=== PATIENT | female | born 1965 | race Caucasian/White ===

== ENCOUNTER 2018-12-17 14:29 | Emergency (ER) | payer OTHER | END 2018-12-17 18:08 | disposition home or self-care (01) | LOC: ED 14:29 ==

== ENCOUNTER 2019-01-01 21:03 | Inpatient (IN) | payer OTHER ==
[~2019-01-01] VITALS: Ht 162.6 cm; Wt 62.6 kg
[~2019-01-01 21:03] MED LIST: ALD50 PO; ATI2I IV; BG MC; CARL PO; DEXPF IV; DOK100 M3 PO; FER300 PO; FOL1 PO; GLU500 PO; HAL5I IM; HEP5I SC; HUMULIN R100 U/1 M1 SC; KCL20L PO; L20I IV; LAC30L PO; LAM100 PO; LAMOTRIGINE200 M1 PO; LASIX40 MG PO; LEVOTHYROXINE0.05 M2 PO; LOTENSIN10 MG PO; NEU100 PO; NEURONTIN600 MG PO; NIT0.4 SL; NOR10T PO; NPHOS PO; OXYBUTYNIN CHLOR5 MG PO; POTASSIUM CHLO10 MEQ PO; PRILOSEC OTC20 M1 PO; PROTONIX40 MG/Pac1 PO; SERO100 PO; SYN5 PO; THERAGRAN-M1 TA4 PO; TYL325 PO; VITC PO; XIFAXAN550 M1 PO; ZOCOR20 MG PO; ZOFI IV
[2019-01-01 21:13] VITALS: Ht 162.6 cm; Wt 62.6 kg
[2019-01-01 21:42] LABS: PLATELET COUNT 439 x10^3mcL (130-400); RED CELL DISTRIBUTION WIDTH 16.3 % (11.5-14.5)
[2019-01-01 21:49] LABS: BILIRUBIN TOTAL 1.4 mg/dL (0.20-1.00); CALCIUM 9.1 mg/dL (8.5-10.1); CARBON DIOXIDE 13.5 mmol/L (21-32); CREATININE SERUM 1.1 mg/dL (0.6-1.0); POTASSIUM SERUM 3.8 mmol/L (3.5-5.1); TOTAL PROTEIN, SERUM 7.2 g/dL (6.4-8.2)
[2019-01-01 21:50] LABS: ALBUMIN 2.5 g/dL (3.4-5.0)
[2019-01-01 22:15] LABS: BAND NEUTROPHIL 8 % (0-10); BASOPHIL 0 % (0-2); METAMYELOCTE 1 % (0-2); MONOCYTE 3 % (0-7); SEGMENTED NEUTROPHILS 82 % (37-75)
[2019-01-01 22:16] LABS: PLATELET MORPHOLOGY PLATELETS NORMAL; rbc morphology (normal/abnorm) NORMAL (NORMAL)
[2019-01-02 00:13] LABS: CALCIUM 7.9 mg/dL (8.5-10.1); CARBON DIOXIDE 17.7 mmol/L (21-32); CHLORIDE SERUM 107 mmol/L (98-107); GFR1 > 60 mL/min; GLUCOSE SERUM 107 mg/dL (74-106); POTASSIUM SERUM 3.6 mmol/L (3.5-5.1); SODIUM SERUM 141 mmol/L (136-145)
[2019-01-02 01:35] LABS: microscopic required? YES; urine erythrocyte 1+ (NEGATIVE)
[2019-01-02 01:40] LABS: CHOLESTEROL/HDL RATIO 1.6
[2019-01-02 01:44] LABS: AMPHETAMINE QUAL UR NONE DETECTED (See below)
[2019-01-02 01:50] LABS: FREE T4 1.05 ng/dL (0.76-1.46); FREE THYROXINE INDEX 2.2 ug/dL (1.4-4.5); T4(THYROXINE) 6.5 ug/dL (4.7-13.3)
[2019-01-02 02:03] LABS: T3 TOTAL 0.86 ng/mL
[2019-01-02] MEDS ORDERED: LEVOTHYROXIN0.025 M2 (02:09)
[2019-01-02 04:04] VITALS: BP 104/61
[2019-01-02 05:41] VITALS: BP 95/56
[2019-01-02 06:37] LABS: PLATELET COUNT 366 x10^3mcL (130-400)
[2019-01-02 06:44] LABS: BASOPHIL % 0 % (0-2); RED CELL DISTRIBUTION WIDTH 16.1 % (11.5-14.5)
[2019-01-02 06:48] LABS: CALCIUM 8.3 mg/dL (8.5-10.1); CARBON DIOXIDE 16.8 mmol/L (21-32); CHLORIDE SERUM 106 mmol/L (98-107); GFR1 > 60 mL/min; MAGNESIUM 2.4 mg/dL (1.8-2.4); PHOSPHOROUS 1.8 mg/dL (2.5-4.9); POTASSIUM SERUM 3.3 mmol/L (3.5-5.1); SODIUM SERUM 141 mmol/L (136-145)
[2019-01-02 07:28] LABS: GLUCOSE SERUM 58 mg/dL (74-106)
[2019-01-02 09:29] LABS: BILIRUBIN DIRECT 0.74 mg/dL (0.0-0.2); BILIRUBIN TOTAL 1.14 mg/dL (0.20-1.00); TOTAL PROTEIN, SERUM 6.6 g/dL (6.4-8.2)
[2019-01-02 09:30] LABS: ALBUMIN 2.3 g/dL (3.4-5.0)
[2019-01-02 10:19] VITALS: BP 107/70
[2019-01-02 17:12] VITALS: BP 93/56
[2019-01-02 20:57] VITALS: BP 102/61
[2019-01-03 05:30] VITALS: BP 109/73
[2019-01-03 06:33] LABS: BASOPHIL % 0.1 % (0-2); PLATELET COUNT 307 x10^3mcL (130-400)
[2019-01-03 06:39] LABS: RED CELL DISTRIBUTION WIDTH 16.4 % (11.5-14.5)
[2019-01-03 06:43] LABS: CALCIUM 8.3 mg/dL (8.5-10.1); CARBON DIOXIDE 21.3 mmol/L (21-32); CHLORIDE SERUM 111 mmol/L (98-107); GFR1 > 60 mL/min; GLUCOSE SERUM 135 mg/dL (74-106); MAGNESIUM 1.7 mg/dL (1.8-2.4); PHOSPHOROUS 2.2 mg/dL (2.5-4.9); SODIUM SERUM 144 mmol/L (136-145)
[2019-01-03 07:01] LABS: POTASSIUM SERUM 2.8 mmol/L (3.5-5.1)
[2019-01-03 07:25] VITALS: BP 106/62
[2019-01-03 16:40] VITALS: BP 99/64
[2019-01-03 20:52] VITALS: BP 100/63
[2019-01-04 05:43] VITALS: BP 103/65
[2019-01-04 06:12] LABS: CALCIUM 8.1 mg/dL (8.5-10.1); CARBON DIOXIDE 20.3 mmol/L (21-32); CHLORIDE SERUM 114 mmol/L (98-107); CREATININE SERUM 0.6 mg/dL (0.6-1.0); GFR1 > 60 mL/min; GLUCOSE SERUM 97 mg/dL (74-106); POTASSIUM SERUM 3.3 mmol/L (3.5-5.1); SODIUM SERUM 146 mmol/L (136-145)
[2019-01-04 06:26] LABS: BASOPHIL % 0.3 % (0-2); PLATELET COUNT 304 x10^3mcL (130-400)
[2019-01-04 07:54] VITALS: BP 106/67
[2019-01-04 10:00] VITALS: BP 99/66
[2019-01-04 16:01] VITALS: BP 105/68
[2019-01-04 21:17] VITALS: BP 104/65
[2019-01-05 05:20] VITALS: BP 103/62
[2019-01-05 06:22] LABS: CALCIUM 9.1 mg/dL (8.5-10.1); CARBON DIOXIDE 20.2 mmol/L (21-32); CHLORIDE SERUM 112 mmol/L (98-107); CREATININE SERUM 0.5 mg/dL (0.6-1.0); GFR1 > 60 mL/min; GLUCOSE SERUM 129 mg/dL (74-106); SODIUM SERUM 142 mmol/L (136-145)
[2019-01-05 07:58] LABS: BASOPHIL % 0.2 % (0-2); PLATELET COUNT 321 x10^3mcL (130-400)
[2019-01-05 08:00] LABS: RED CELL DISTRIBUTION WIDTH 16.9 % (11.5-14.5)
[2019-01-05 09:42] VITALS: BP 108/68
[2019-01-05 14:05] VITALS: BP 108/68
[2019-01-05 17:00] VITALS: BP 97/53
[2019-01-05 20:59] VITALS: BP 97/56
[2019-01-06 05:08] VITALS: BP 105/73
[2019-01-06] MEDS ORDERED: PROTONIX20 MG PO (08:26)
[2019-01-06] MEDS ORDERED: ZOF4 PO (08:26)
[2019-01-06 09:25] VITALS: BP 121/77
== END 2019-01-06 11:39 | disposition home or self-care (01) | DRG 380 ==
LOC: ED 21:03 → MU 01-02 00:47 → DU 01-02 00:47 → MU 01-02 02:50
PROVIDERS: Emergency Medicine; Internal Medicine; Internal Medicine Gastroenterology; ADMIT General Practice
PROC: 0DB78ZX Excision of Stomach, Pylorus, Via Natural or Artificial Opening Endoscopic, Diagnostic (ICD-10-PCS; principal; 2019-01-04 08:00)
PROC: 0D778ZZ Dilation of Stomach, Pylorus, Via Natural or Artificial Opening Endoscopic (ICD-10-PCS; 2019-01-04 08:00)
DX: K28.9 Gastrojejunal ulcer, unspecified as acute or chronic, without hemorrhage or perforation (principal); N17.0 Acute kidney failure with tubular necrosis; E43 Unspecified severe protein-calorie malnutrition; K85.10 Biliary acute pancreatitis without necrosis or infection; N39.0 Urinary tract infection, site not specified; F33.9 Major depressive disorder, recurrent, unspecified; K72.90 Hepatic failure, unspecified without coma; S70.02XA Contusion of left hip, initial encounter; E11.9 Type 2 diabetes mellitus without complications; E83.42 Hypomagnesemia; E03.9 Hypothyroidism, unspecified; R80.9 Proteinuria, unspecified; N32.81 Overactive bladder; I10 Essential (primary) hypertension; F41.8 Other specified anxiety disorders; W18.39XA Other fall on same level, initial encounter; Y93.89 Activity, other specified; Y92.018 Other place in single-family (private) house as the place of occurrence of the external cause; Z98.84 Bariatric surgery status; Z68.22 Body mass index [BMI] 22.0-22.9, adult; Z79.84 Long term (current) use of oral hypoglycemic drugs
CPT/HCPCS: 43235; 82962; 84439; 97116-GP; 97530-GP; C1769; C9113; G0378; G0480; J1200; J1610; J1885; J2250; J2310; J2405; J2765; J3010; J3475; J3480; J3490; J7030; J7042; J7131; J8597; Q0092

== ENCOUNTER 2019-01-30 15:45 | Emergency (ER) | payer OTHER, MEDICAID ==
[~2019-01-30] VITALS: Ht 162.6 cm; Wt 61.7 kg
[~2019-01-30 15:45] MED LIST changes: +LEVOTHYROXIN0.025 M2; +PROTONIX20 MG PO; +ZOF4 PO
[2019-01-30 17:40] VITALS: Ht 162.6 cm; Wt 61.7 kg
[2019-01-30 21:57] VITALS: BP 110/73
== END 2019-01-30 21:57 | disposition home or self-care (01) ==
LOC: ED 15:45
DX: S72.111A Displaced fracture of greater trochanter of right femur, initial encounter for closed fracture (principal); W19.XXXA Unspecified fall, initial encounter; Y93.89 Activity, other specified; Y92.89 Other specified places as the place of occurrence of the external cause; Y99.8 Other external cause status

== ENCOUNTER 2019-02-03 04:05 | Emergency (ER) | payer OTHER, MEDICAID ==
[~2019-02-03] VITALS: Ht 162.6 cm; Wt 61.7 kg
[2019-02-03 04:08] VITALS: Ht 162.6 cm; Wt 61.7 kg
[2019-02-03 12:45] VITALS: BP 101/68
== END 2019-02-03 12:52 ==
LOC: ED 04:05
DX: S72.001A Fracture of unspecified part of neck of right femur, initial encounter for closed fracture (principal); F79 Unspecified intellectual disabilities; I10 Essential (primary) hypertension; E11.9 Type 2 diabetes mellitus without complications; E78.00 Pure hypercholesterolemia, unspecified; E05.90 Thyrotoxicosis, unspecified without thyrotoxic crisis or storm; G89.29 Other chronic pain; Z98.890 Other specified postprocedural states; Z90.710 Acquired absence of both cervix and uterus; W18.39XA Other fall on same level, initial encounter; Y93.89 Activity, other specified; Y92.89 Other specified places as the place of occurrence of the external cause; Y99.8 Other external cause status

== ENCOUNTER 2019-04-01 16:02 | Inpatient (IN) | payer OTHER ==
[~2019-04-01] VITALS: Ht 162.6 cm; Wt 54.6 kg
--- NOTE | 2019-04-01 16:10 | NUR ---
ARRIVED WITH [facility] STATED DAUGHTER MADE CALL THAT MOM WAS S/P FALL YESTERDAY AND POST FALL BEEN WEAK AND FLAT AFFECT.PT ALERT TO SELF ABLE TO ANSWER SOME QUESTIONS BUT THEN BECOMES NON VERBAL VITALS STABLE IV STARTED TO LEFT A/C AND BOLUS GIVEN 1000CC X1 URINE COLLECTED DIPPED AND SENT.ALL LABS COOLECTED AT THIS POINT AWAITING MD RODRIGUEZ FAMILY AT BEDSIDE PT POOR HISTORIAN.HOB ELVATED HEART RATE WDL.NURSE CONTINUES TO MONITOR
[2019-04-01 16:57] LABS: BASOPHIL % 0.2 % (0-2); PLATELET COUNT 303 x10^3mcL (130-400)
[2019-04-01 16:57] LABS: microscopic required? YES; urine erythrocyte NEGATIVE (NEGATIVE)
[2019-04-01 17:00] LABS: RED CELL DISTRIBUTION WIDTH 19.3 % (11.5-14.5)
[2019-04-01 17:09] LABS: ALKALINE PHOSPHATASE 155 U/L (46-116); ALT/SGPT 56 U/L (14-59); AMPHETAMINE QUAL UR NONE DETECTED (See below); AST/SGOT 66 U/L (15-37); BILIRUBIN TOTAL 1.7 mg/dL (0.20-1.00); CALCIUM 6.9 mg/dL (8.5-10.1); CARBON DIOXIDE 21.7 mmol/L (21-32); CHLORIDE SERUM 110 mmol/L (98-107); CREATININE SERUM 0.7 mg/dL (0.6-1.0); GFR1 > 60 mL/min; GLUCOSE SERUM 153 mg/dL (74-106); SODIUM SERUM 146 mmol/L (136-145)
[2019-04-01 17:14] LABS: ALBUMIN 1.6 g/dL (3.4-5.0); POTASSIUM SERUM 2.9 mmol/L (3.5-5.1); TOTAL PROTEIN, SERUM 5.1 g/dL (6.4-8.2)
--- NOTE | 2019-04-01 17:38 | NUR ---
URINE BACK NEG FOR UDS PT DOWN FOR XRAY FATHER ARRIVED AT BEDSIDE PT REMAINS SAME AFTER IVF COMPLETED FC TO GRAVITY TOLERTED WELL WITH DARK KIRAN URINE.
--- NOTE | 2019-04-01 18:00 | NUR ---
PT STILL REMAINS IN XRAY TO BE ADMITTED
--- NOTE | 2019-04-01 18:52 | NUR ---
IVP K RIDER STARTED X1 SECOND ONE STILL NEEDED TOTAL 40MEG
--- NOTE | 2019-04-01 18:57 | NUR ---
XRAY AT THIS TIME OF STOMACH AND PELVIC PT A/O/4 FATHER AT BEDSIDE NO S/S OF DISTRESS C/O N/V AT THIS TIMR REFUSING PO DIOGO PEREIRA MADE AWARE TO GIVEN ZOFRAN.
--- NOTE | 2019-04-01 19:10 | NUR ---
ADMITTING DR SHAFER IN TO SEE PT STATED WILL PLACE ORDERS FOR ADMIT NO ROOM AT THIS TIME PT REMAINS STABLE WITH SOME [place] ZOFRAN TO BE GIVEN.
--- NOTE | 2019-04-01 19:17 | NUR ---
REPORT OFF TO KRISTIN PT STABLE UPON REPORT RECIEVED
--- NOTE | 2019-04-01 19:24 | NUR ---
REPORT RECEIVED FROM CHARLINE DANG
--- NOTE | 2019-04-01 19:31 | NUR ---
SECOND IV STARTED TO RIGHT HAND 20G MAG RIDER STARTED AT THIS TIME.
--- NOTE | 2019-04-01 19:47 | NUR ---
REPORT GIVEN TO MORRIS PT GOING TO ROOM [address] LAND INFORMED OF SECONDARY KRIDER TO BE HUNG WILL GO UP STAIRS WITH PT PLAN WAS OKAYED BY DR ANGÉLICA CACERES INFORMED TO HANG SECOND K RIDER PT STABLE UPON REPORT GIVEN ALL BELONGINGS SENT WITH PT.
--- NOTE | 2019-04-01 20:00 | NUR ---
RECEIVED PT FROM ED VIA KENYA, PT IS LETHARGIC, ABLE TO FOLLOW SIMPLE COMMANDS, SPEECH IS SLOW BUT CLEAR, HAND DOUBLE ENDING MACHINE OPERATOR ARE WEAK AND EQUAL, NO FACIAL DROOP NOTED. PUPILS ARE SLUGGISH AND DILATED. NO SOB NOTED, LUNG SOUNDS CTA, O2 AT=98%, RA. DENIES CHEST PAIN/PRESSURE, SINUS TACHYCARDIA ON THE MONITOR. C/O 7/10 ABDOMINAL PAIN, DENIES NAUSEA, VOMITED X4 CAFE LEAD. LAST BM TODAY. BOWEL SOUNDS ACTIVE. ABDOMEN IS SOFT. BOWEL SOUNDS ACTIVE. W/ BOATENG CATHETER DRAINING W/ YELLOW COLORED URINE. IV SITES ON THE RIGHT HAND AND LEFT HAND ARE PATENT AND INTACT. RECEIVED PT FROM ED W/ NS, POTASSIUM CHLORIDE AND MAGNESIUM SULFATE ONGOING. W/ DRY SCABS ON BLE. HOB ELEVATED AT 30 DEG. SIDE RAILS UPX2. CALL LIGHT ON REACH. ENDORSED TO PRIMARY NURSE MORRIS FOR CONTINUITY OF CARE
[2019-04-01 20:15] VITALS: BP 115/76
[2019-04-01 20:27] VITALS: Ht 162.6 cm; Wt 54.6 kg
--- NOTE | 2019-04-02 01:08 | NUR ---
PT AWAKE AND C/O OF BLE AND BACK PAIN, PT STATED THAT SHE TAKES NEURONTIN AND PERCOCET 10/325 PO Q6HRS NEEDED, DR Momin MADE AWARE, PER DR FITZGERALD THAT SHE WILL NOT RESUME THE MEDS AT THIS TIME. TORADOL 15MG VIA IVP ADMINISTERED.
--- NOTE | 2019-04-02 04:45 | NUR ---
PT CALLED AND C/O OF BLE PAIN, MADE DR SHAFER AWARE THAT TORADOL WAS GIVEN @ 0049, PER DR SHAFER HE WILL COME TO ASSESS PT IN 10-15 MINS.
--- NOTE | 2019-04-02 04:55 | NUR ---
DR SHAFER AT BEDSIDE AND EVAL PT, NORCO 5/325 PO GIVEN ORDERED.
--- NOTE | 2019-04-02 05:38 | NUR ---
DR SHAFER MADE AWARE OF PT THIS MORNING BLOOD SUGAR- 83 MG/DL AND PT STILL NPO AT THIS TIME, NO NEW ORDER RECEIVE.
--- NOTE | 2019-04-02 05:45 | NUR ---
PT ASLEEP BUT EASILY AROUSABLE AFTER MEDICATED WITH NORCO PO, SLEPT ON AND OFF WHOLE NIGHT, STILL NPO AT THIS TIME, PT NOT COOPERATIVE WITH NURSING CARE AT TIMES, IVF INFUSING WELL, SIDE RAILS UP, BED ALARM ON, NO DISTRESS NOTED, WILL KEEP TO MONITOR.
[2019-04-02 05:58] VITALS: BP 100/58
[2019-04-02 06:35] LABS: BASOPHIL % 0.4 % (0-2); PLATELET COUNT 290 x10^3mcL (130-400)
[2019-04-02 07:12] LABS: CALCIUM 6.6 mg/dL (8.5-10.1); CARBON DIOXIDE 19.9 mmol/L (21-32); CHLORIDE SERUM 113 mmol/L (98-107); CREATININE SERUM 0.7 mg/dL (0.6-1.0); GFR1 > 60 mL/min; GLUCOSE SERUM 86 mg/dL (74-106); MAGNESIUM 1.7 mg/dL (1.8-2.4); POTASSIUM SERUM 3.9 mmol/L (3.5-5.1); SODIUM SERUM 146 mmol/L (136-145)
--- NOTE | 2019-04-02 07:30 | NUR ---
RECEIVED HAND OFF REPORT FROM NURSE. PATIENT ADMITTED FROM ED BROUGHT IN BY AMBULANCE AFTER SUFFERING A GROUND LEVEL FALL, PATIENT STATES SHE TRIPPED AFTER TRYING TO MOVE TOO QUICKLY. XRAY HIP SHOWS FRACTURE TO RIGHT HIP. UNABLE TO DETERMIN AGE. PATIENT RESTING A TTHIS TIME. CALL LIGHT WITHIN REACH, BOATENG DRAINING CLEAR YELLOW URINE, IV X2 TO RIGHT AND LEFT WRIST SITES WNL. HEART MONITOR INPLACE SHOWING NSR.
[2019-04-02 08:01] LABS: RED CELL DISTRIBUTION WIDTH 19.5 % (11.5-14.5)
[2019-04-02 08:22] VITALS: BP 111/69
--- NOTE | 2019-04-02 08:27 | NUR ---
PATIENT COMPLAINING OF 8/10 PAIN TO RIGHT HIP, STATING SHE HAD A FRACTURE TO THAT HIP 2-3 WEEKS AGO. PATIENT VITAL SIGNS STABLE ADMINISTERED TORODOL PER SEP. ASSISTED PATIENT TO REPOSITION WITH PILLOW UNDER LEFT HIP PER APTIENT REQUEST. CALL ILGHT WITHIN REACH, WILL CONTINUE TO MONITOR
--- NOTE | 2019-04-02 10:37 | NUR ---
[facility] CALLED TO SEND OVER RECORDS, STATED THAT RECORDS DEPARTMENT IS CLOSED ON THE WEEKEND, WILL ENDORSE TO FOLLOW UP ON WEDNESDAY MORNING
--- NOTE | 2019-04-02 11:37 | NUR ---
PATIETN COMPLAINING OF PAIN, ADMINSTERED NORCO PER MAR. PATIENT REQUESTING STONGER MEDICATIONS. BEDSIDE GLUCOSE RESULT WAS 66, DR BRYANT AWARE, IS GOING TO CHANGE DIET ORDER.
--- NOTE | 2019-04-02 12:06 | NUR ---
PATIENT CLEARED TO EAT BY DR BRYANT, OFFERED PATIENT A SANWHICH AND JUICES TO INCREASE BLOOD SUGAR. PATIENT REFUSING SANDWHICH. LUNCH COMING AT 1230. REPOSITIONED PATIENT FOR COMFORT. REQUESTING HOME PAIN MEDICATIONS. DR BRYANT AWARE AND DOES NOT WANT TO CHANGE DOSE AT THIS TIME.
--- NOTE | 2019-04-02 12:59 | NUR ---
PATIENT FATHER AT BEDSIDE. PATIENT STATES THAT SHE WAS AT [facility] BEFORE [facility] AFTER SUSTAINING HER HIP FRACTURE. DR BRYANT WANTS TO BE SURE THAT FRACTURE IS NOT NEW OR WILL NEED HIGHER LEVEL OF CARE. PATIENT SEEMS TO BE UNRELIABLE HISTORIAN.
[2019-04-02 13:03] VITALS: BP 103/60
--- NOTE | 2019-04-02 13:41 | NUR ---
PATIENT COMPLAING OF KEREN ANGCTED PER SEP. DISCOVERED THAT PATIENT WAS ADMITTED PREVIOUSLY UNDER THE NAME ANTHONY BROOKSELLE AND RECORDS WILL NEED TO BE MERGED TOMORRW. PATIENT WAS SEEN IN ER IN JANUARY FOR HIP PAIN AND XRAY SHOWED FRATURE THAT CURRENT XRAYS SHOW. NACHO DANG INFORMED DR JIM.
--- NOTE | 2019-04-02 16:59 | NUR ---
PATIENT RESTING IN BED, BREATHING REGULAR AND UNLABORED. EASILY ROUSABLE TO VOICE. BLOOD SUGAR CHECK IS 88. NO COVERAGE NEEDED. ENCOURAGED PATIENT TO EAT WHEN DINNER TRAY COMES. PATIENT REQUESTED TO SLEEP AT THIS TIME AND NOT BE DISTURBED, NO PAIN REPORTED. CALL LIGHT WITHIN REACH, WILL CONTINUE TO MONITOR
[2019-04-02 17:40] VITALS: BP 111/72
--- NOTE | 2019-04-02 17:58 | NUR ---
PATIENT COMPLAINING OF 8/10 PAIN TOP RIGHT LEG WELL NAUSEA. MEDICATED PER [facility]. SAT PATIENT UP TO EAT DINNER TRAY. CALL LIGHT WITHIN REACH
--- NOTE | 2019-04-02 19:25 | NUR ---
ENDORSED CARE TO NIGHT NURSE. ALL QUESTIONS ADDRESSED
--- NOTE | 2019-04-02 19:40 | NUR ---
RECEIVED PT IN BED. PT IS LETHARGIC, BUT EASILY AROUSABLE. DENIES ANY HEADACHE OR DIZZINESS AT THIS TIME. BREATHING EVEN AND UNLABORED ON ROOM AIR. LUNG SOUNDS CLEAR. NO RESPIRATORY DISTRESS OR SOB NOTED. ON TELE #22, NSR. DENIES CHEST PAIN. NO TRACE EDEMA NOTED TO BLE. GENERALIZED WEAKNESS. ON THE AIR MATTRESS. PT ABLE TO REPOSITION SELF IN BED. ABDOMINAL SOFT AND FLAT WITH ACTIVE BOWEL SOUNDS. C/O NAUSEA AND VOMITING AT TIMES. BOATENG CATHETER GRAVITY DRAINING YELLOW URINE. SCATTERED ECCHYMOSES TO BLE AND BUE. SIDE RAILS UP. CALL LIGHT WITHIN REACH. BED ALARM ON.
[2019-04-02 21:07] VITALS: BP 118/79
--- NOTE | 2019-04-03 01:08 | NUR ---
PT AWAKE AND COMPLAINING OF PAIN TO BILATERAL LOWER EXTREMITIES. NORCO GIVEN. PT VOMITED 2X. PARTIAL BED BATH GIVEN AND CHANGE OF GOWN. PHENERGEN GIVEN.
--- NOTE | 2019-04-03 06:03 | NUR ---
PT ASLEEP BUT EASILY AROUSABLE. SLEPT ON AND OFF ALL NIGHT. VOMITED 2X 100ML EACH TIME. ADMINISTERED NORCO 1X FOR PAIN. IVF INFUSING WELL. NO S/S OF RESPIRATORY DISTRESS OR SOB AT THIS TIME. CALL LIGHT WITHIN REACH. BED RAILS UP. WILL CONTINUE TO MONITOR.
[2019-04-03 06:12] VITALS: BP 117/83
[2019-04-03 06:26] LABS: BASOPHIL % 0.4 % (0-2); PLATELET COUNT 250 x10^3mcL (130-400)
[2019-04-03 06:45] LABS: CALCIUM 6.7 mg/dL (8.5-10.1); CARBON DIOXIDE 23.1 mmol/L (21-32); CHLORIDE SERUM 115 mmol/L (98-107); CREATININE SERUM 0.6 mg/dL (0.6-1.0); GFR1 > 60 mL/min; GLUCOSE SERUM 73 mg/dL (74-106); MAGNESIUM 1.7 mg/dL (1.8-2.4); PHOSPHOROUS 2.7 mg/dL (2.5-4.9); POTASSIUM SERUM 3.7 mmol/L (3.5-5.1); SODIUM SERUM 145 mmol/L (136-145)
--- NOTE | 2019-04-03 07:00 | NUR ---
RECEIVED BEDSIDE REPORT FROM COPIER REPAIR TECHNICIAN NURSE. PATIENT RESTING COMFORTABLY IN BED. NO APPARENT DISTRESS OR DISCOMFORT NOTED. BREATHING EVEN AND UNLABORED. NO RESPIRATORY DISTRESS OR DISCOMFORT NOTED. PATIENT DENIES SHORTNESS OF BREATH. PATIENT DENIES CHEST PAIN/PRESSURE AT THIS TIME. BOATENG CATHETER DRAINING TO GRAVITY YELLOW URINE. IV PATENT AND INTACT. ALL QUESTIONS AND CONCERNS ADDRESSED. ALL NEEDS ATTENDED TO. WILL CONTINUE TO MONITOR
[2019-04-03 09:03] VITALS: BP 123/83
--- NOTE | 2019-04-03 10:06 | NUR ---
ADMINISTERED ROUTINE MEDICATIONS PRESCRIBED. PT TOLERATED WELL . NO ADVERSE SIDE AFFECTS NOTED. INSTRUCTED TO USE CALL LIGHT . BED IN LOW POSITION. WILL CONTINUE TO MONITOR.
[2019-04-03 10:58] LABS: rbc morphology (normal/abnorm) ABNORMAL (NORMAL)
[2019-04-03 11:46] VITALS: BP 113/78
--- NOTE | 2019-04-03 12:01 | NUR ---
1. Recommend continuing [facility] diet. 2. Recommend Ensure High protein BID and vitamin D3 supplement. Discussed recommendation with Dr. Be.
--- NOTE | 2019-04-03 12:01 | NUR ---
Initial Nutrition Assessment: 212T/B BILL FINE IA HR Dx: Dehydration, hypokalemia, ALOC PMHx: DM, HTN PSHx: None Labs: BG 73L, MG 1.7L, ALB 1.6L, AST 66H, HGB 10.7L Meds: Colace, D 50%, humulin, norco Diet: CCHO PO Intake: (04/03) Breakfast 50% Ht: 162.56 cm (64") Wt: 54.6 kg (120#) BMI: 20.7 kg/m2 Bed scale: 118.9# IBW: 120# (55 kg) %IBW: 100 UBW: 130# Age: 54/F Food Allergies: NKFA Skin: ecchymosis, scattered scabs to BLE Guillermo: 15 Edema: none GI: Last BM: 04/01 Per H&P, Pt is a 54 year old female with a PMH of diabetes, hypertension, L hip fracture came in with complaints of nausea and vomiting since 1 week. Patient had multiple episodes of non-bloody vomiting in the last week and has a significant decrease in her appetite due to feeling nauseous. RDN Visit (04/03): Patient was alert and oriented and said that her appetite is good overall but she keep feeling nauseous. She did not eat anything for breakfast this morning. Patient wants to consume ONS Ensure. FNS received consult for "decreased appetite, appears malnourished" on 04/02. Problem with: N/V/D/C: nausea Problems with: Chewing/Swallowing: none Current appetite: fair Recent wt change: lost 10 # x 1 month %wt change: 8.5 Vitamin/Supplement use: MVI, D3 Special diet at home: Diabetic Physical activity: wheelchair bound Nutrition education given: Patient said that she has her DM under control and did not want any further information/handouts. Food-drug interactions: none Education given: n/a Estimated Nutritional Needs Based on current body weight 54 kg Energy: 2020-9638 kcal/d (25-30 kcal/kg) Protein: 54-65 g/d (1.0-1.2 g/kg) - preserve LBM Fluid: 9821-2979 ml/d (1 ml/kcal) or per doctor Nutrition Diagnosis 1. Inadequate oral intake related to nausea as evidenced by documented PO <75%. Intervention 1. Recommend continuing [facility] diet. 2. Recommend Ensure High protein BID and vitamin D3 supplement. Discussed recommendation with Dr. Be. Monitor/Evaluate Goal: PO intake at least 75% of estimated needs Monitor: PO intake, Labs, GI function F/U in 3-5 days as moderate risk
--- NOTE | 2019-04-03 12:23 | NUR ---
PT LYING IN BED IN NO APARENT PAIN. BLOOD GLUCOSE 80. NO ISULIN COVERAGE NEEDED WILL CONTINUE TO MIONITOR. CALL LIGHT WITH IN REACH.
--- NOTE | 2019-04-03 16:45 | NUR ---
REPORTED TO DR SEO AT THIS TIME PATIENT MAGNESIUM 1.7. PER DR SEO OK TO INPUT TELEPHONE ORDER FOR 1GM MAGNESIUM IV ONE TIME DOSE AND A REPEAT MAGNESIUM LAB FOR TOMORROW IN AM. TELEPHONE ORDER READ BACK, CONFIRMED AND THROUGH. ALL NEEDS ATTENDED TO. WILL CONTINUE TO MONITOR
[2019-04-03 17:43] VITALS: BP 109/73
--- NOTE | 2019-04-03 19:08 | NUR ---
PATIENT RESTING COMFORTABLY IN BED AT THIS TIME. NO APPARENT DISTRESS OR DISCOMFORT NOTED. IV PATENT AND ITNACT TO BOTH RIGHT HAND AND LEFT WRIST. BOATENG CATHETER DRAINING TO GRAVITY YELLOW URINE. ALL QUESTIONS AND CONCERNS ADDRESSED. ALL NEEDS ATTENDED TO. SAFETY PRECAUTIONS MAINTAINED. WILL ENDORSE ALL CARE TO CULTURAL ANTHROPOLOGY PROFESSOR NURSE
--- NOTE | 2019-04-03 19:20 | NUR ---
RECEIVED PT IN BED HAVIN DINNER. SHE IS ALERT,ORIENTED TO PERSON, PLACE AND TIME . NO SOB ON ROOM AIR. SHE HAS NO C/O PAIN AT THIS TIME. NO C/O ABDL DISCOMFORT. W/ HL TO RT HAND AND LT WRIST INTACT. CALL LIGHT W/IN REACH.
[2019-04-03 20:31] VITALS: BP 107/71
--- NOTE | 2019-04-03 22:24 | NUR ---
PT C/O BILAT LEG PAIN 10/10. PERCOCET 5 MG PO GIVEN.
--- NOTE | 2019-04-04 02:30 | NUR ---
PT APPEARS TO BE SLEEPING COMFORTABLY. RESP. EVEN AND UNLABORED.
--- NOTE | 2019-04-04 05:24 | NUR ---
PT SLEPT THROUGH THE NIGHT. SHE HAD NO EPISODE OF RESP. DISTRESS. SHE WAS MEDICATED FOR BILAT LEG PAIN X1. SHE HAD LOOSE BM X4. BOATENG CATH INTACT W/ 300 CC OUTPUT . ALL NEEDS ATTENDED TO.
[2019-04-04 05:40] VITALS: BP 122/71
--- NOTE | 2019-04-04 05:55 | NUR ---
BS=62/66 (REPEATED). PT AWAKE BUT DROWSY. SHE IS ORIENTED AND ABLE TO COMMUNICATE. PT GIVEN ORANGE JUICE. WILL RECHECK BLOOD SUGAR.
--- NOTE | 2019-04-04 06:28 | NUR ---
INFORMED DR. ROMO ([place]) THAT BS WAS RECHECKED AFTER ORANGE JUICE WAS GIVEN. BS=87.
--- NOTE | 2019-04-04 06:36 | NUR ---
PT C/O BILAT LEG PAIN 10/10. PERCOCET 5 MG PO GIVEN.
[2019-04-04 06:51] LABS: CARBON DIOXIDE 20.7 mmol/L (21-32); CHLORIDE SERUM 112 mmol/L (98-107); CREATININE SERUM 0.6 mg/dL (0.6-1.0); GFR1 > 60 mL/min; GLUCOSE SERUM 99 mg/dL (74-106); MAGNESIUM 1.7 mg/dL (1.8-2.4); POTASSIUM SERUM 3.8 mmol/L (3.5-5.1); SODIUM SERUM 142 mmol/L (136-145)
--- NOTE | 2019-04-04 07:15 | NUR ---
RECEIVED BEDSIDE REPORT FROM CHAPLAIN RESIDENT NURSE. PATIENT RESTING COMFORTABLY IN BED. NO APPARENT DISTRESS OR DISCOMFORT. BREATHING EVEN AND UNLABORED. NO RESPIRATORY DISTRESS OR DISCOMFORT NOTED. PATIENT DENIES CHEST PAIN/PRESSURE AT THIS TIME. IV TO RIGHT HAND AND LEFT WRIST PATENT AND INTACT. ALL QUESTIONS AND CONCERNS ADDRESSED. ALL NEEDS ATTENDED TO. WILL CONTINUE TO MONITOR
[2019-04-04 09:48] VITALS: BP 141/84
--- NOTE | 2019-04-04 10:01 | NUR ---
MORNING MEDICATIONS ADMINISTERED. COLACE HELD DUE TO PATIENT HAVING SOFT STOOL AND NO NEED FOR STOOL SOFTNER. ALL NEEDS ATTENDED TO. WILL CONTINUE TO MONITOR
--- NOTE | 2019-04-04 10:23 | NUR ---
SPOKE TO DR MACIAS REGARDING PATIENT MAGNESIUM OF 1.7. INFORMED DR MACIAS YESTERDAY 04/03 MAGNESIUM WAS 1.7 AND PATIENT RECEIVED MAGNESIUM 1G IV X1. PER DR MACIAS, OK TO ORDER 800MG MAGNESIUM OXIDE PO ONE TIME. ORDER READ BACK, CONFIRMED, AND FOLLOWED THROUGH. ALL NEEDS ATTENDED TO. WILL CONTINUE TO MONITOR
--- NOTE | 2019-04-04 11:57 | NUR ---
PATIENT BLOOD SUGAR 85. NO INSULIN COVERAGE REQUIRED AT THIS TIME. ALL NEEDS ATTENDED TO. WILL CONTINUE TO MONITOR
[2019-04-04 12:18] VITALS: BP 109/72
--- NOTE | 2019-04-04 15:05 | NUR ---
SPOKE TO DR MACIAS REGARDING PATIENT C/O HAVING MULTIPLE BOWEL MOVEMENTS. PATIENT STATES STOOL IS SOFT. PER DR MACIAS OK TO INPUT TELEPHONE ORDER FOR 2GM IMODIUM PO ONE TIME. TELEPHONE ORDER READ BACK, CONFIRMED, AND FOLLOWED THROUGH. ALL NEEDS ATTENDED TO. WILL CONTINUE TO MONITOR
[2019-04-04] MEDS ORDERED: TYL325 PO (16:13)
[2019-04-04] MEDS ORDERED: NEU100 PO (16:13)
[2019-04-04] MEDS ORDERED: PRI20 PO (16:14)
[2019-04-04] MEDS ORDERED: D-10001 TAB PO (16:15)
[2019-04-04] MEDS ORDERED: ULT50 PO (16:18)
--- NOTE | 2019-04-04 17:24 | NUR ---
GAVE REPORT TO BILL MARTINES AT [facility] AT THIS TIME. ALL QUESTIONS AND CONCERNS ADDRESSED. ALL NEEDS ATTENDED TO. REPORTED TO BILL PATIENT JOGGLE PRESS OPERATOR TIME BETWEEN [id number]. WILL CONTINUE TO MONITOR
--- NOTE | 2019-04-04 17:30 | NUR ---
PER DR MACIAS DO NOT DC BOATENG CATHETER. ATTENDING NURSE RACH AWARE.
[2019-04-04 17:58] VITALS: BP 112/76
--- NOTE | 2019-04-04 18:24 | NUR ---
PATIENT RESTING COMFORTABLY IN BED AT THIS TIME. NO APPARENT DISTRESS OR DISCOMFORT NOTED. BOATENG CATHETER DRAINING TO GRAVITY YELLOW URINE. IV PATENT AND INTACT. ALL QUESTIONS AND CONCERNS ADDRESSED. ALL NEEDS ATTENDED TO. SAFETY PRECAUTIONS MAINTAINED. WILL ENDORSE ALL CARE TO BOOKSTORE CLERK NURSE
--- NOTE | 2019-04-04 19:30 | NUR ---
RECEIVED PT IN BED AWAKE, ALERT, ORIENTED X4. NO SOB ON ROOM AIR. PT FOR D/C TO [facility] AND JUST WAITING FOR TRANSPORTATION. W/ BOATENG CATH INTACT AND PATENT. PT HAS NO C/O PAIN OR DISCOMFORT AT THIS TIME. CALL LIGHT W/IN REACH.
--- NOTE | 2019-04-04 20:30 | NUR ---
IV TO LT WRIST REMOVED. CATHETER INTACT AND NO ACTIVE BLEEDING NOTED.
--- NOTE | 2019-04-04 20:35 | NUR ---
PT TAKEN TO [facility] VIA MEDICAL TRANSPORT. PT IN STABLE CONDITION UPON DISCHARGE.
== END 2019-04-04 20:40 | DRG 391 ==
LOC: ED 16:02 → DU 18:48
PROVIDERS: Specialist; ADMIT Internal Medicine
DX: K52.9 Noninfective gastroenteritis and colitis, unspecified (principal); N17.0 Acute kidney failure with tubular necrosis; E43 Unspecified severe protein-calorie malnutrition; E87.0 Hyperosmolality and hypernatremia; E86.0 Dehydration; G90.8 Other disorders of autonomic nervous system; E87.6 Hypokalemia; E83.42 Hypomagnesemia; E83.51 Hypocalcemia; S72.002D Fracture of unspecified part of neck of left femur, subsequent encounter for closed fracture with routine healing; E11.9 Type 2 diabetes mellitus without complications; I10 Essential (primary) hypertension; W19.XXXD Unspecified fall, subsequent encounter
CPT/HCPCS: 82962; 97116-GP; 97530-GP; G0378; J1885; J2405; J2550; J3475; J3480; J7030; J7040; Q0092

== ENCOUNTER 2020-02-28 20:32 | Inpatient (IN) | payer OTHER ==
[~2020-02-28] VITALS: Ht 162.6 cm; Wt 69.0 kg
[~2020-02-28 20:32] MED LIST changes: +D-10001 TAB PO; +PRI20 PO; +ULT50 PO
[2020-02-28 21:43] LABS: PLATELET COUNT 304 x10^3mcL (130-400); RED CELL DISTRIBUTION WIDTH 13.7 % (11.5-14.5)
[2020-02-28 21:50] LABS: CALCIUM 7.3 mg/dL (8.5-10.1); CARBON DIOXIDE 25.3 mmol/L (21-32); CHLORIDE SERUM 94 mmol/L (98-107); CREATININE SERUM 3.4 mg/dL (0.6-1.0); GFR1 15 mL/min; GLUCOSE SERUM 155 mg/dL (74-106); POTASSIUM SERUM 4.1 mmol/L (3.5-5.1); SODIUM SERUM 128 mmol/L (136-145)
[2020-02-28 22:03] LABS: ALKALINE PHOSPHATASE 250 U/L (46-116); ALT/SGPT 59 U/L (14-59); AST/SGOT 301 U/L (15-37); BILIRUBIN TOTAL 1.3 mg/dL (0.20-1.00); LACTIC DEHYDROGENASE (LDH) 401 U/L (100-190)
[2020-02-28 22:05] LABS: ALBUMIN 1.6 g/dL (3.4-5.0); TOTAL PROTEIN, SERUM 5.3 g/dL (6.4-8.2)
[2020-02-28 22:06] LABS: BAND NEUTROPHIL 5 % (0-10); BASOPHIL 0 % (0-2); MONOCYTE 3 % (0-7); SEGMENTED NEUTROPHILS 81 % (37-75)
[2020-02-28 22:07] LABS: rbc morphology (normal/abnorm) NORMAL (NORMAL)
[2020-02-28 22:19] LABS: C REACTIVE PROTEIN 56.3 mg/dL (<=0.9)
[2020-02-28] MEDS ORDERED: ARIPIPRAZOLE OD10 MG PO (22:41)
[2020-02-28] MEDS ORDERED: DITROPAN XL5 MG PO (22:42)
[2020-02-28] MEDS ORDERED: NATURE'S BLEND F1 MG PO (22:42)
[2020-02-28] MEDS ORDERED: SIMVASTATIN80 M1 PO (22:43)
[2020-02-28] MEDS ORDERED: SERTRALINE H20 MG/ML PO (22:43)
[2020-02-28] MEDS ORDERED: LAMICTAL200 MG PO (22:44)
[2020-02-29] VITALS (14 sets, daily range): BP systolic 92–107; BP diastolic 53–578
[2020-02-29 04:22] LABS: PHOSPHOROUS 3.7 mg/dL (2.5-4.9)
[2020-02-29 04:23] LABS: CHOLESTEROL/HDL RATIO 1.7
[2020-02-29 04:24] LABS: MAGNESIUM 0.9 mg/dL (1.8-2.4)
[2020-02-29 09:01] LABS: PLATELET COUNT 374 x10^3mcL (130-400); RED CELL DISTRIBUTION WIDTH 13.9 % (11.5-14.5)
[2020-02-29 09:38] LABS: CALCIUM 7.3 mg/dL (8.5-10.1); CARBON DIOXIDE 22.4 mmol/L (21-32); CREATININE SERUM 3.6 mg/dL (0.6-1.0); MAGNESIUM 2.8 mg/dL (1.8-2.4); PHOSPHOROUS 7.5 mg/dL (2.5-4.9); POTASSIUM SERUM 4.6 mmol/L (3.5-5.1)
[2020-02-29 09:43] LABS: T3 TOTAL 0.28 ng/mL
[2020-02-29 09:49] LABS: FREE T4 0.94 ng/dL (0.76-1.46)
[2020-02-29 11:12] LABS: MONOCYTE 9 % (0-7); SEGMENTED NEUTROPHILS 68 % (37-75); rbc morphology (normal/abnorm) NORMAL (NORMAL)
[2020-03-01] VITALS (11 sets, daily range): BP systolic 90–107; BP diastolic 50–61
[2020-03-01 05:49] LABS: PLATELET COUNT 293 x10^3mcL (130-400)
[2020-03-01 05:50] LABS: RED CELL DISTRIBUTION WIDTH 14.6 % (11.5-14.5)
[2020-03-01 06:06] LABS: BILIRUBIN TOTAL 0.9 mg/dL (0.20-1.00); CALCIUM 6.9 mg/dL (8.5-10.1); CARBON DIOXIDE 21.7 mmol/L (21-32); CREATININE SERUM 3.8 mg/dL (0.6-1.0); MAGNESIUM 2.2 mg/dL (1.8-2.4); PHOSPHOROUS 6.6 mg/dL (2.5-4.9); POTASSIUM SERUM 3.9 mmol/L (3.5-5.1)
[2020-03-01 06:08] LABS: TOTAL PROTEIN, SERUM 4.2 g/dL (6.4-8.2)
[2020-03-01 06:20] LABS: BAND NEUTROPHIL 16 % (0-10); MONOCYTE 6 % (0-7); SEGMENTED NEUTROPHILS 73 % (37-75); rbc morphology (normal/abnorm) NORMAL (NORMAL)
[2020-03-01 06:29] LABS: C REACTIVE PROTEIN 53.9 mg/dL (<=0.9)
[2020-03-01 11:47] LABS: PLATELET COUNT 247 x10^3mcL (130-400)
[2020-03-01 11:58] LABS: RED CELL DISTRIBUTION WIDTH 14.6 % (11.5-14.5)
[2020-03-01 12:47] LABS: MONOCYTE 4 % (0-7); SEGMENTED NEUTROPHILS 90 % (37-75); rbc morphology (normal/abnorm) NORMAL (NORMAL)
[2020-03-02] VITALS (16 sets, daily range): BP systolic 89–114; BP diastolic 48–66
[2020-03-02 05:28] LABS: PLATELET COUNT 159 x10^3mcL (130-400)
[2020-03-02 05:29] LABS: RED CELL DISTRIBUTION WIDTH 14.6 % (11.5-14.5)
[2020-03-02 05:41] LABS: BAND NEUTROPHIL 15 % (0-10); METAMYELOCTE 7 % (0-2); MONOCYTE 3 % (0-7); SEGMENTED NEUTROPHILS 70 % (37-75)
[2020-03-02 05:42] LABS: rbc morphology (normal/abnorm) NORMAL (NORMAL)
[2020-03-02 05:46] LABS: CALCIUM 6.6 mg/dL (8.5-10.1); CARBON DIOXIDE 23.4 mmol/L (21-32); CREATININE SERUM 3.5 mg/dL (0.6-1.0); MAGNESIUM 1.9 mg/dL (1.8-2.4); PHOSPHOROUS 4.1 mg/dL (2.5-4.9); POTASSIUM SERUM 3.8 mmol/L (3.5-5.1)
[2020-03-03] VITALS (16 sets, daily range): BP systolic 100–128; BP diastolic 52–79
[2020-03-03 05:49] LABS: PLATELET COUNT 125 x10^3mcL (130-400); RED CELL DISTRIBUTION WIDTH 15.1 % (11.5-14.5)
[2020-03-03 06:02] LABS: BAND NEUTROPHIL 19 % (0-10); METAMYELOCTE 7 % (0-2); MONOCYTE 2 % (0-7); SEGMENTED NEUTROPHILS 67 % (37-75)
[2020-03-03 06:03] LABS: rbc morphology (normal/abnorm) NORMAL (NORMAL)
[2020-03-03 06:07] LABS: CALCIUM 7.3 mg/dL (8.5-10.1); CARBON DIOXIDE 20.2 mmol/L (21-32); CREATININE SERUM 3.3 mg/dL (0.6-1.0); MAGNESIUM 1.8 mg/dL (1.8-2.4); PHOSPHOROUS 2.6 mg/dL (2.5-4.9)
[2020-03-03 06:13] LABS: POTASSIUM SERUM 2.7 mmol/L (3.5-5.1)
[2020-03-04] VITALS (17 sets, daily range): BP systolic 86–1010; BP diastolic 50–58
[2020-03-04 05:16] LABS: PLATELET COUNT 109 x10^3mcL (130-400)
[2020-03-04 05:24] LABS: CALCIUM 7.9 mg/dL (8.5-10.1); CARBON DIOXIDE 21.4 mmol/L (21-32); CREATININE SERUM 2.6 mg/dL (0.6-1.0); MAGNESIUM 1.7 mg/dL (1.8-2.4); PHOSPHOROUS 1.4 mg/dL (2.5-4.9); POTASSIUM SERUM 3.4 mmol/L (3.5-5.1)
[2020-03-04 05:32] LABS: BAND NEUTROPHIL 17 % (0-10); METAMYELOCTE 6 % (0-2); MONOCYTE 3 % (0-7); SEGMENTED NEUTROPHILS 70 % (37-75)
[2020-03-04 05:33] LABS: rbc morphology (normal/abnorm) NORMAL (NORMAL)
[2020-03-05] VITALS (13 sets, daily range): BP systolic 97–113; BP diastolic 50–67
[2020-03-05 05:05] LABS: BASOPHIL % 0.3 % (0-2)
[2020-03-05 05:20] LABS: CALCIUM 8.5 mg/dL (8.5-10.1); CARBON DIOXIDE 18.4 mmol/L (21-32); CREATININE SERUM 2.2 mg/dL (0.6-1.0); MAGNESIUM 1.8 mg/dL (1.8-2.4); PHOSPHOROUS 1.2 mg/dL (2.5-4.9); PLATELET COUNT 99 x10^3mcL (130-400); POTASSIUM SERUM 3.3 mmol/L (3.5-5.1); RED CELL DISTRIBUTION WIDTH 14.8 % (11.5-14.5)
[2020-03-05 19:16] LABS: UA SPECIFIC GRAVITY 1.015 (1.005-1.035); microscopic required? YES; urine erythrocyte 2+ (NEGATIVE)
[2020-03-06] VITALS (17 sets, daily range): BP systolic 97–118; BP diastolic 50–69
[2020-03-06 05:45] LABS: BASOPHIL % 0.8 % (0-2)
[2020-03-06 05:50] LABS: PLATELET COUNT 114 x10^3mcL (130-400); RED CELL DISTRIBUTION WIDTH 15.4 % (11.5-14.5)
[2020-03-06 06:00] LABS: CALCIUM 8.3 mg/dL (8.5-10.1); CARBON DIOXIDE 10.3 mmol/L (21-32); CREATININE SERUM 2.2 mg/dL (0.6-1.0); MAGNESIUM 1.8 mg/dL (1.8-2.4); PHOSPHOROUS 2.4 mg/dL (2.5-4.9); POTASSIUM SERUM 3.6 mmol/L (3.5-5.1)
[2020-03-06 16:58] LABS: PLATELET COUNT 138 x10^3mcL (130-400)
[2020-03-06 19:42] LABS: BAND NEUTROPHIL 1 % (0-10); METAMYELOCTE 2 % (0-2); MONOCYTE 1 % (0-7); SEGMENTED NEUTROPHILS 90 % (37-75); acanthocyte (spur cell) 1+; rbc morphology (normal/abnorm) ABNORMAL (NORMAL)
[2020-03-06 19:43] LABS: PLATELET MORPHOLOGY LARGE PLATELET SEEN
[2020-03-07] VITALS (17 sets, daily range): BP systolic 103–135; BP diastolic 54–74
[2020-03-07 06:01] LABS: PLATELET COUNT 171 x10^3mcL (130-400)
[2020-03-07 06:02] LABS: CALCIUM 8.6 mg/dL (8.5-10.1); CARBON DIOXIDE 20.9 mmol/L (21-32); MAGNESIUM 1.8 mg/dL (1.8-2.4); PHOSPHOROUS 2.9 mg/dL (2.5-4.9); POTASSIUM SERUM 3.3 mmol/L (3.5-5.1)
[2020-03-07 06:45] LABS: RED CELL DISTRIBUTION WIDTH 14.7 % (11.5-14.5)
[2020-03-07 10:17] LABS: BAND NEUTROPHIL 3 % (0-10); MONOCYTE 1 % (0-7); SEGMENTED NEUTROPHILS 90 % (37-75)
[2020-03-07 10:20] LABS: rbc morphology (normal/abnorm) ABNORMAL (NORMAL)
[2020-03-08] VITALS (16 sets, daily range): BP systolic 101–123; BP diastolic 52–64
[2020-03-08 08:07] LABS: CALCIUM 8.5 mg/dL (8.5-10.1); CARBON DIOXIDE 23.1 mmol/L (21-32); CREATININE SERUM 1.5 mg/dL (0.6-1.0); MAGNESIUM 1.8 mg/dL (1.8-2.4); PHOSPHOROUS 4.1 mg/dL (2.5-4.9); PLATELET COUNT 174 x10^3mcL (130-400)
[2020-03-08 08:31] LABS: POTASSIUM SERUM 2.8 mmol/L (3.5-5.1)
[2020-03-08 11:44] LABS: T3 TOTAL 0.36 ng/mL
[2020-03-08 11:49] LABS: PLATELET COUNT 180 x10^3mcL (130-400)
[2020-03-08 11:55] LABS: RED CELL DISTRIBUTION WIDTH 14.8 % (11.5-14.5)
[2020-03-08 12:45] LABS: BAND NEUTROPHIL 3 % (0-10); MONOCYTE 2 % (0-7); SEGMENTED NEUTROPHILS 91 % (37-75)
[2020-03-08 12:46] LABS: SEGMENTED NEUTROPHILS 90 % (37-75)
[2020-03-08 12:46] LABS: PLATELET MORPHOLOGY PLATELETS NORMAL; rbc morphology (normal/abnorm) ABNORMAL (NORMAL)
[2020-03-08 12:47] LABS: BAND NEUTROPHIL 4 % (0-10); MONOCYTE 2 % (0-7); PLATELET MORPHOLOGY PLATELETS NORMAL; rbc morphology (normal/abnorm) ABNORMAL (NORMAL)
[2020-03-08 12:50] LABS: FREE T4 0.64 ng/dL (0.76-1.46)
[2020-03-08 12:53] LABS: T4(THYROXINE) 2.9 ug/dL (4.7-13.3)
[2020-03-09] VITALS (18 sets, daily range): BP systolic 106–126; BP diastolic 51–70
[2020-03-09 05:44] LABS: CALCIUM 8.2 mg/dL (8.5-10.1); CARBON DIOXIDE 19.4 mmol/L (21-32); MAGNESIUM 1.8 mg/dL (1.8-2.4); PHOSPHOROUS 5.1 mg/dL (2.5-4.9)
[2020-03-09 05:47] LABS: CREATININE SERUM 1.4 mg/dL (0.6-1.0)
[2020-03-09 07:00] LABS: RED CELL DISTRIBUTION WIDTH 14.4 % (11.5-14.5)
[2020-03-09 07:19] LABS: PLATELET COUNT 111 x10^3mcL (130-400)
[2020-03-09 12:02] LABS: MONOCYTE 4 % (0-7); SEGMENTED NEUTROPHILS 87 % (37-75)
[2020-03-09 12:04] LABS: rbc morphology (normal/abnorm) ABNORMAL (NORMAL)
[2020-03-10] VITALS (18 sets, daily range): BP systolic 100–149; BP diastolic 58–733
[2020-03-10 08:19] LABS: BASOPHIL % 0.1 % (0-2); PLATELET COUNT 259 x10^3mcL (130-400)
[2020-03-10 08:26] LABS: CALCIUM 8.1 mg/dL (8.5-10.1); CARBON DIOXIDE 21.5 mmol/L (21-32); CREATININE SERUM 1.3 mg/dL (0.6-1.0); MAGNESIUM 1.7 mg/dL (1.8-2.4); PHOSPHOROUS 4.9 mg/dL (2.5-4.9)
[2020-03-11] VITALS (16 sets, daily range): BP systolic 110–140; BP diastolic 68–97
[2020-03-11 05:22] LABS: BASOPHIL % 0.2 % (0-2); PLATELET COUNT 262 x10^3mcL (130-400)
[2020-03-11 05:32] LABS: CALCIUM 8.1 mg/dL (8.5-10.1); CHLORIDE SERUM 117 mmol/L (98-107); GFR1 > 60 mL/min; GLUCOSE SERUM 128 mg/dL (74-106); MAGNESIUM 1.6 mg/dL (1.8-2.4); PHOSPHOROUS 4.6 mg/dL (2.5-4.9); POTASSIUM SERUM 4.2 mmol/L (3.5-5.1); SODIUM SERUM 147 mmol/L (136-145)
[2020-03-11 18:26] LABS: CALCIUM 7.8 mg/dL (8.5-10.1); CARBON DIOXIDE 21.6 mmol/L (21-32); CHLORIDE SERUM 118 mmol/L (98-107); CREATININE SERUM 0.9 mg/dL (0.6-1.0); GFR1 > 60 mL/min; GLUCOSE SERUM 159 mg/dL (74-106); POTASSIUM SERUM 4.1 mmol/L (3.5-5.1); SODIUM SERUM 151 mmol/L (136-145)
[2020-03-12] VITALS (16 sets, daily range): BP systolic 94–131; BP diastolic 49–77
[2020-03-12 06:57] LABS: BASOPHIL % 0.6 % (0-2); PLATELET COUNT 285 x10^3mcL (130-400)
[2020-03-12 07:09] LABS: RED CELL DISTRIBUTION WIDTH 15.5 % (11.5-14.5)
[2020-03-12 07:47] LABS: CALCIUM 7.8 mg/dL (8.5-10.1); CARBON DIOXIDE 20.9 mmol/L (21-32); CHLORIDE SERUM 119 mmol/L (98-107); CREATININE SERUM 0.8 mg/dL (0.6-1.0); GFR1 > 60 mL/min; GLUCOSE SERUM 141 mg/dL (74-106); MAGNESIUM 1.7 mg/dL (1.8-2.4); PHOSPHOROUS 3.5 mg/dL (2.5-4.9); POTASSIUM SERUM 3.7 mmol/L (3.5-5.1); SODIUM SERUM 149 mmol/L (136-145)
[2020-03-13] VITALS (18 sets, daily range): BP systolic 100–125; BP diastolic 64–78
[2020-03-13 06:22] LABS: BASOPHIL % 0.6 % (0-2); PLATELET COUNT 308 x10^3mcL (130-400); RED CELL DISTRIBUTION WIDTH 15.4 % (11.5-14.5)
[2020-03-13 07:05] LABS: CARBON DIOXIDE 21.3 mmol/L (21-32); CHLORIDE SERUM 114 mmol/L (98-107); CREATININE SERUM 0.7 mg/dL (0.6-1.0); GFR1 > 60 mL/min; GLUCOSE SERUM 120 mg/dL (74-106); SODIUM SERUM 146 mmol/L (136-145)
[2020-03-13 07:07] LABS: ALKALINE PHOSPHATASE 229 U/L (46-116); ALT/SGPT 91 U/L (14-59); AST/SGOT 118 U/L (15-37); BILIRUBIN TOTAL 0.52 mg/dL (0.20-1.00); CALCIUM 7.8 mg/dL (8.5-10.1); CARBON DIOXIDE 23.1 mmol/L (21-32); CHLORIDE SERUM 114 mmol/L (98-107); CREATININE SERUM 0.8 mg/dL (0.6-1.0); GFR1 > 60 mL/min; GLUCOSE SERUM 120 mg/dL (74-106); SODIUM SERUM 146 mmol/L (136-145)
[2020-03-13 07:10] LABS: MAGNESIUM 1.8 mg/dL (1.8-2.4); PHOSPHOROUS 4.1 mg/dL (2.5-4.9)
[2020-03-13 07:17] LABS: ALBUMIN 1.1 g/dL (3.4-5.0); TOTAL PROTEIN, SERUM 5.8 g/dL (6.4-8.2)
[2020-03-14] VITALS (19 sets, daily range): BP systolic 98–118; BP diastolic 58–71; Ht 162.6 cm; Wt 69.0 kg
[2020-03-14 06:06] LABS: BASOPHIL % 0.1 % (0-2); PLATELET COUNT 286 x10^3mcL (130-400)
[2020-03-14 06:12] LABS: RED CELL DISTRIBUTION WIDTH 15.4 % (11.5-14.5)
[2020-03-14 06:14] LABS: CALCIUM 7.6 mg/dL (8.5-10.1); CARBON DIOXIDE 25.2 mmol/L (21-32); CHLORIDE SERUM 112 mmol/L (98-107); CREATININE SERUM 0.6 mg/dL (0.6-1.0); GFR1 > 60 mL/min; GLUCOSE SERUM 229 mg/dL (74-106); MAGNESIUM 1.5 mg/dL (1.8-2.4); PHOSPHOROUS 3.8 mg/dL (2.5-4.9); POTASSIUM SERUM 4.1 mmol/L (3.5-5.1); SODIUM SERUM 143 mmol/L (136-145); rbc morphology (normal/abnorm) ABNORMAL (NORMAL)
[2020-03-14 08:31] LABS: BASOPHIL % 0.5 % (0-2); PLATELET COUNT 261 x10^3mcL (130-400)
[2020-03-14 08:34] LABS: RED CELL DISTRIBUTION WIDTH 15.2 % (11.5-14.5)
[2020-03-15] VITALS (17 sets, daily range): BP systolic 100–129; BP diastolic 62–77
[2020-03-15 05:38] LABS: BASOPHIL % 0.5 % (0-2); PLATELET COUNT 274 x10^3mcL (130-400)
[2020-03-15 05:43] LABS: RED CELL DISTRIBUTION WIDTH 15.8 % (11.5-14.5)
[2020-03-15 06:00] LABS: ALKALINE PHOSPHATASE 194 U/L (46-116); ALT/SGPT 263 U/L (14-59); AST/SGOT 150 U/L (15-37); BILIRUBIN TOTAL 0.94 mg/dL (0.20-1.00); CALCIUM 8.3 mg/dL (8.5-10.1); CARBON DIOXIDE 25.9 mmol/L (21-32); CHLORIDE SERUM 111 mmol/L (98-107); CREATININE SERUM 0.7 mg/dL (0.6-1.0); GFR1 > 60 mL/min; GLUCOSE SERUM 176 mg/dL (74-106); MAGNESIUM 1.9 mg/dL (1.8-2.4); PHOSPHOROUS 3.4 mg/dL (2.5-4.9); POTASSIUM SERUM 4.6 mmol/L (3.5-5.1); SODIUM SERUM 142 mmol/L (136-145); TOTAL PROTEIN, SERUM 6.2 g/dL (6.4-8.2)
[2020-03-15 06:06] LABS: ALBUMIN 2.1 g/dL (3.4-5.0)
[2020-03-16] VITALS (15 sets, daily range): BP systolic 101–132; BP diastolic 72–82
[2020-03-16 06:34] LABS: BASOPHIL % 0.5 % (0-2); PLATELET COUNT 326 x10^3mcL (130-400)
[2020-03-16 06:37] LABS: RED CELL DISTRIBUTION WIDTH 15.3 % (11.5-14.5)
[2020-03-16 07:21] LABS: CALCIUM 7.9 mg/dL (8.5-10.1); CARBON DIOXIDE 26.2 mmol/L (21-32); CHLORIDE SERUM 108 mmol/L (98-107); CREATININE SERUM 0.5 mg/dL (0.6-1.0); GFR1 > 60 mL/min; GLUCOSE SERUM 139 mg/dL (74-106); MAGNESIUM 1.5 mg/dL (1.8-2.4); PHOSPHOROUS 3.7 mg/dL (2.5-4.9); POTASSIUM SERUM 4.1 mmol/L (3.5-5.1); SODIUM SERUM 140 mmol/L (136-145)
[2020-03-17] VITALS (20 sets, daily range): BP systolic 96–1107; BP diastolic 64–79
[2020-03-17 06:07] LABS: BASOPHIL % 0.5 % (0-2); PLATELET COUNT 368 x10^3mcL (130-400)
[2020-03-17 06:09] LABS: RED CELL DISTRIBUTION WIDTH 15.4 % (11.5-14.5)
[2020-03-17 06:26] LABS: CALCIUM 7.6 mg/dL (8.5-10.1); CARBON DIOXIDE 24.4 mmol/L (21-32); CHLORIDE SERUM 108 mmol/L (98-107); CREATININE SERUM 0.6 mg/dL (0.6-1.0); GFR1 > 60 mL/min; GLUCOSE SERUM 165 mg/dL (74-106); MAGNESIUM 1.3 mg/dL (1.8-2.4); PHOSPHOROUS 3.6 mg/dL (2.5-4.9); SODIUM SERUM 139 mmol/L (136-145)
[2020-03-18] VITALS (14 sets, daily range): BP systolic 98–124; BP diastolic 62–78
[2020-03-18 06:15] LABS: BASOPHIL % 0.3 % (0-2)
[2020-03-18 06:18] LABS: PLATELET COUNT 421 x10^3mcL (130-400); RED CELL DISTRIBUTION WIDTH 15.5 % (11.5-14.5)
[2020-03-18 07:00] LABS: CALCIUM 7.6 mg/dL (8.5-10.1); CARBON DIOXIDE 25.4 mmol/L (21-32); CHLORIDE SERUM 106 mmol/L (98-107); CREATININE SERUM 0.5 mg/dL (0.6-1.0); GFR1 > 60 mL/min; GLUCOSE SERUM 192 mg/dL (74-106); MAGNESIUM 1.5 mg/dL (1.8-2.4); PHOSPHOROUS 3.3 mg/dL (2.5-4.9); POTASSIUM SERUM 4.1 mmol/L (3.5-5.1); SODIUM SERUM 137 mmol/L (136-145)
[2020-03-19] VITALS (17 sets, daily range): BP systolic 97–135; BP diastolic 65–79
[2020-03-20] VITALS (7 sets, daily range): BP systolic 117–128; BP diastolic 75–86
[2020-03-20 07:00] LABS: CALCIUM 8.1 mg/dL (8.5-10.1); CARBON DIOXIDE 25.9 mmol/L (21-32); CHLORIDE SERUM 104 mmol/L (98-107); CREATININE SERUM 0.5 mg/dL (0.6-1.0); GFR1 > 60 mL/min; GLUCOSE SERUM 276 mg/dL (74-106); POTASSIUM SERUM 5.1 mmol/L (3.5-5.1); SODIUM SERUM 135 mmol/L (136-145)
[2020-03-20 08:43] LABS: BASOPHIL % 0.1 % (0-2)
[2020-03-20 09:00] LABS: RED CELL DISTRIBUTION WIDTH 15.5 % (11.5-14.5)
[2020-03-20 09:47] LABS: PLATELET COUNT 571 x10^3mcL (130-400)
== END 2020-03-20 15:27 | DRG 3 ==
LOC: ED 20:32 → IC 23:46 → EDBEDREQ 23:49 → IC 02-29 00:16
PROVIDERS: Emergency Medicine; Internal Medicine; Internal Medicine Nephrology; Surgery; ADMIT Student in an Organized Health Care Education/Training Program; ATTEND Student in an Organized Health Care Education/Training Program
PROC: 0W9G00Z Drainage of Peritoneal Cavity with Drainage Device, Open Approach (ICD-10-PCS; 2020-02-29)
PROC: 02H633Z Insertion of Infusion Device into Right Atrium, Percutaneous Approach (ICD-10-PCS; 2020-02-29)
PROC: B548ZZA Ultrasonography of Superior Vena Cava, Guidance (ICD-10-PCS; 2020-02-29)
PROC: 0DUA07Z Supplement Jejunum with Autologous Tissue Substitute, Open Approach (ICD-10-PCS; 2020-03-01)
PROC: 0JB80ZZ Excision of Abdomen Subcutaneous Tissue and Fascia, Open Approach (ICD-10-PCS; 2020-03-01)
PROC: 30233N1 Transfusion of Nonautologous Red Blood Cells into Peripheral Vein, Percutaneous Approach (ICD-10-PCS; 2020-03-08)
PROC: 0BH17EZ Insertion of Endotracheal Airway into Trachea, Via Natural or Artificial Opening (ICD-10-PCS; 2020-03-13)
PROC: 5A1955Z Respiratory Ventilation, Greater than 96 Consecutive Hours (ICD-10-PCS; 2020-03-13)
PROC: 0B110F4 Bypass Trachea to Cutaneous with Tracheostomy Device, Open Approach (ICD-10-PCS; principal; 2020-03-13 07:30)
PROC: 0DHA0UZ Insertion of Feeding Device into Jejunum, Open Approach (ICD-10-PCS; 2020-03-19)
DX: A41.9 Sepsis, unspecified organism (principal); N17.0 Acute kidney failure with tubular necrosis; E43 Unspecified severe protein-calorie malnutrition; J18.9 Pneumonia, unspecified organism; K65.9 Peritonitis, unspecified; K65.1 Peritoneal abscess; E87.1 Hypo-osmolality and hyponatremia; Z68.1 Body mass index [BMI] 19.9 or less, adult; G93.1 Anoxic brain damage, not elsewhere classified; D68.59 Other primary thrombophilia; T81.31XA Disruption of external operation (surgical) wound, not elsewhere classified, initial encounter; K91.89 Other postprocedural complications and disorders of digestive system; Z20.828 Contact with and (suspected) exposure to other viral communicable diseases; G89.29 Other chronic pain; E83.51 Hypocalcemia; E83.42 Hypomagnesemia; I95.9 Hypotension, unspecified; E03.9 Hypothyroidism, unspecified; Z79.899 Other long term (current) drug therapy; Z79.01 Long term (current) use of anticoagulants; Z90.49 Acquired absence of other specified parts of digestive tract; Z90.710 Acquired absence of both cervix and uterus; Z83.3 Family history of diabetes mellitus; Z98.84 Bariatric surgery status; Z79.891 Long term (current) use of opiate analgesic; E87.6 Hypokalemia; Y83.8 Other surgical procedures as the cause of abnormal reaction of the patient, or of later complication, without mention of misadventure at the time of the procedure; Y92.098 Other place in other non-institutional residence as the place of occurrence of the external cause; E11.65 Type 2 diabetes mellitus with hyperglycemia
CPT/HCPCS: 31500; 36556; 36600; 82962; 83880; 84439; 85378; 87106; 87804; 97112-GP; A4628; C1887; C9113; G0378; J0131; J0456; J0610; J0696; J1450; J1644; J1815; J1940; J2001; J2060; J2185; J2250; J2270; J2354; J2370; J2405; J2543; J3010; J3370; J3475; J3480; J3490; J7030; J7040; J7042; J7050; J7120; J7131; P9016; P9047; Q0092; Q9966; Q9967; U0003-CS